=== PATIENT | male | born 1965 | race Two or more races ===

== ENCOUNTER → 2021-07-03 14:57 | Outpatient (CLI) | payer BC, SELFPAY ==
[2021-07-03 15:22] LABS: Hematocrit 36.2 % (40-54); Hemoglobin 11.6 g/dL (13.0-16.5); Mean Corpuscular Hgb 29.8 pg (27.0-32.0); Mean Corpuscular Volume 93.1 fL (80-94); Platelet Count 360 K/mm3 (150-450); RBC Distribution Width CV 13.5 % (11.6-14.6); RBC Distribution Width SD 46.1 fl (35.1-43.9); Red Blood Count 3.89 M/mm3 (4.6-6.2); White Blood Count 10.5 K/mm3 (4.4-11.0)
[2021-07-03 15:50] LABS: ALB/GLOB Ratio 0.9 RATIO (0.9-2.4); AST(SGOT) 17 U/L (15-37); Alanine Aminotransfer ALT/SGPT 25 U/L (16-61); Alkaline Phosphatase 123 U/L (45-117); Anion Gap 8 (5-15); BUN 23 mg/dL (7-18); Calcium,Total 9.2 mg/dL (8.5-10.1); Chloride 104 mmol/L (98-107); Cholesterol 150 mg/dL (200); Creatinine, Serum 1.21 mg/dL (0.70-1.30); EST Glomerular Filtration Rate 66 mL/min (>60); Est Glom Filt Rate - Afr Amer 80 mL/min (>60); Globulin 4.3 g/dL (2.2-4.2); Glucose 87 mg/dL (74-106); High Density Lipoprotein 35 mg/dL; Iron 87 ug/dL (65-175); Iron Binding Capacity,Total 343 ug/dL (250-450); PSA,Total - Annual Screen 0.28 ng/mL (0.00-4.00); Potassium 4.2 mmol/L (3.5-5.1); Protein, Total 8.3 g/dL (6.4-8.2); Sodium Level 136 mmol/L (136-145); Triglycerides 136 mg/dL; Very Low Density Lipoprotein 27 mg/dL (5-40)
[2021-07-03 15:52] LABS: Hemoglobin A1c 6.9 % (3.8-5.6)
== END ==
PROVIDERS: PCP Nurse Practitioner Family; Referring Provider Nurse Practitioner Family; Visit Provider Nurse Practitioner Family
DX: R73.01 Impaired fasting glucose (principal); I10 Essential (primary) hypertension; I25.810 Atherosclerosis of coronary artery bypass graft(s) without angina pectoris; E78.00 Pure hypercholesterolemia, unspecified; D50.9 Iron deficiency anemia, unspecified; Z12.5 Encounter for screening for malignant neoplasm of prostate
CPT/HCPCS: 36415; 80053; 80061; 83036; 83540; 83550; 84153; 85027; G0103

== ENCOUNTER 2021-08-02 14:03 | Emergency (ER) | payer BC, SELFPAY ==
[2021-08-02 14:04] VITALS: BP 113/82; PULSE 69; PULSE 71; RESP 16; RESP 17; TEMP 36.6; O2SAT 94; O2SAT 95; BMI 34.0
--- NOTE | 2021-08-02 14:10 | RAD_ITS ---
STUDY: X-RAY CHEST REASON FOR EXAM: Male, 55 years old. SOB . Covid positive. TECHNIQUE: Single AP portable view of the chest. COMPARISON: None. FINDINGS: Findings suggest a mild degree of vascular congestion. There is no demonstrated pleural abnormality. Sternal cerclage wires and vascular clips are present from a prior sternotomy and coronary artery bypass graft procedure (CABG). A left-sided dual-chamber pacemaker is seen. Normal mediastinum and vito. Normal visualized pulmonary arteries. Normal visualized aortic arch and descending thoracic aorta. Normal visualized thoracic spine. There is degenerative osteoarthritis of the bilateral shoulders. There is no demonstrated abnormality of the visualized soft tissue structures of the upper abdomen. RAD/Chest 1 View IMPRESSION: Findings suggestive of a mild degree of CHF. Electronically Signed: Sohail Sebastian MD at 14:30 EDT , Service support ,
--- NOTE | 2021-08-02 14:34 | EX.ED.DYSGE1 ---
HPI History of Present Illness Chief Complaint: Fever Informant: patient Onset/Context/Timing Onset: Days Context: Gradual Onset Timing: Continuous Current Severity: Mild Maximum Severity: Mild Narrative Narrative: 55-year-old male history of CAD, NM with prior CABG. States he started feeling poorly on Saturday. Had a Covid test done Saturday and got his positive results today. States had fever and chills. Cough. Myalgias. Nausea, vomiting and diarrhea. He is currently nauseated. Said he had decreased oral intake. Prior similar symptoms: No Recent Illness/Hospitalization: No PFSH PFSH Medical History Atherosclerotic heart disease of [place] coronary artery without angina pectoris Essential hypertension JOSE (generalized anxiety disorder) History of non-ST elevation myocardial infarction (NSTEMI) (03/2018) Hyperlipidemia Iron deficiency anemia Neuropathy Obesity Postoperative atrial fibrillation Tachy-jessie syndrome Type 2 diabetes mellitus Home Medications atorvastatin 80 mg tablet 80 mg PO QHS 06/23/21 [History Last Taken Unknown] escitalopram oxalate 20 mg tablet 20 mg PO DAILY 06/23/21 [History Last Taken Unknown] ferrous sulfate 325 mg (65 mg iron) tablet 325 mg PO BID 06/23/21 [History Last Taken Unknown] gabapentin 800 mg tablet 800 mg PO TID 06/23/21 [History Last Taken Unknown] metoprolol succinate 25 mg tablet,extended release 24 hr 25 mg PO DAILY 06/23/21 [History Last Taken Unknown] aspirin 81 mg tablet,delayed release 81 mg PO QDAY #90 tab 07/12/21 [Rx Last Taken Unknown] dexamethasone [Decadron] 6 mg PO DAILY #7 tab 08/02/21 [Rx Last Taken Unknown] ondansetron 4 mg PO Q6H PRN #7 tab 08/02/21 [Rx Last Taken Unknown] Allergy/AdvReac Type Severity Reaction Status Date / Time codeine AdvReac unknown Verified 08/02/21 14:21 Family History Mother Heart disease Diabetes Father Heart disease Surgical History H/O coronary artery bypass surgery (04/08/18) History of left heart catheterization (04/04/18) History of permanent cardiac pacemaker placement (04/14/18) Social History Smoking Status: Never smoker alcohol intake: never ROS ROS ED ROS Narrative Covid positive. Nausea, vomiting diarrhea. Fever and chills. Myalgias. Cough. Review of Systems ROS Unobtainable: Denies due to encephalopathy Constitutional Constitutional ED: Reports chills, fever(s) and subjective Eyes Eyes: Denies change in vision ENT ENT ED: Denies ear pain or sore throat Cardiovascular Cardiovascular: Denies chest pain Respiratory/Chest Respiratory/Chest: Reports cough; Denies dyspnea Gastrointestinal Gastrointestinal: Reports diarrhea, nausea and vomiting; Denies abdominal pain Genitourinary Genitourinary ED: Denies dysuria Musculoskeletal Musculoskeletal: Reports myalgias Integumentary Denies rash Neurologic Neurologic: Denies headache(s) Psychiatric Psychiatric: Denies depression Endocrine Endocrinology: Denies polyuria Allergic/Immunologic Allergic/Immunologic ED: Denies urticaria EXAM Physical Exam Narrative Exam Narrative: Middle-age male no acute distress vital signs stable afebrile. Pulse ox 95% on room air no hypoxia. HEENT exam unremarkable. Neck nontender no lymphadenopathy. Lungs clear to auscultation bilaterally. Heart regular rhythm no murmur. Abdomen soft nondistended normal bowel sounds no peritoneal signs. Chest wall nontender. Well-healed sternotomy. Moving all 4 extremities. Calves nontender without edema or cords. Skin pale. Neurologically is awake alert with no focal motor deficits. Exam benign. Const Vital Signs: 08/02/21 14:04 08/02/21 14:25 Temperature 97.8 F Temperature Source Temporal Pulse Rate 71 Respiratory Rate 16 Respiratory Effort Normal Respiratory Pattern Normal Blood Pressure 113/82 H Blood Pressure Mean 92 Pulse Ox 95 Oxygen Delivery Method Room Air Positive well nourished, well developed and obese; Negative for cachectic, contractures or unkempt General Appearance ED: well developed, NAD and pallor; Negative for unkempt, cachectic, contractures, cyanotic or diaphoretic Nutritional Appearance: obese; Negative for cachectic HEENT Reports moist mucous membranes Negative for trauma or tenderness Eyes PERRL and EOMs intact bilaterally Neck no lymphadenopathy, supple and no JVD General: Negative for tenderness Chest Wall inspection of chest normal and palpation of chest normal Resp normal respiratory effort and clear to auscultation bilaterally Effort and Inspection: Negative for pain with movement Auscultation: Negative for rales, rhonchi or wheezes Cardio regular rate, regular rhythm, S1 normal heart sound, S2 normal heart sound and no murmurs GI normal to inspection, nondistended, normoactive bowel sounds, non-tender, non-distended and no masses Inspection: Negative for abdominal distention Auscultation: normoactive bowel sounds Palpation: soft; Negative for tender, guarding or rebound tenderness present Back/Spine no CVA tenderness General Back: Negative for CVA tenderness Extremity normal to inspection General Extremety ED: Negative for edema or tenderness General Extremity: Negative for edema Neuro oriented x3 and CN's II-XII intact bilaterally Sensorium / Orientation: alert; Negative for orientation impaired, lethargic or stuporous Motor Exam: strength 5/5 throughout Psych mental status grossly normal Appearance: Negative for unkempt Mood & Affect: Negative for depressed or tearful Skin no rashes or lesions noted and no wounds General Skin Exam: pallor; Negative for elasticity normal or jaundice MDM MDM MDM Narrative Medical decision making narrative: 55-year-old male known history of coronary disease and prior bypass. Said Covid symptoms since Saturday had a positive Covid test on Saturday. States has had nausea vomiting diarrhea. To be treated with IV fluids. With screening labs. Lab Data Attestation: I reviewed the patient's lab results. Radiography Chest X-Ray - ED: 1 View, Read by ED Physician, Read by Radiologist, Normal, Heart, Lungs, Mediastinum, Bony Structures, No Acute Disease and Chronic Changes Diagnostic Testing: Clinical Impression(s) from Imaging Studies Chest X-Ray 08/02/21 14:10 IMPRESSION: Findings suggestive of a mild degree of CHF. Electronically Signed: Sohail Sebastian MD at 14:30 EDT , Service support , Portable single view chest x-ray interpreted by myself shows no acute abnormality. Radiologist's reading is CHF I clinically do not think the patient has pulmonary edema. Discharge Plan Triage Chief Complaint: Fever ED Provider: Dashawn Mcfadden Dx/Rx/DC Orders Clinical Impression: COVID-19, Nausea & vomiting Instructions: ED Vomiting and Diarrhea ..., Human Coronaviruses Prescriptions: New dexamethasone [Decadron] 6 mg tablet 6 mg PO DAILY Qty: 7 RF: 0 ondansetron 4 mg tablet,disintegrating 4 mg PO Q6H PRN (Reason: nausea and vomiting) Qty: 7 RF: 0 No Action atorvastatin 80 mg tablet 80 mg PO QHS RF: 0 escitalopram oxalate [Lexapro] 20 mg tablet 20 mg PO DAILY RF: 0 ferrous sulfate 325 mg (65 mg iron) tablet 325 mg PO BID RF: 0 gabapentin 800 mg tablet 800 mg PO TID RF: 0 metoprolol succinate 25 mg tablet extended release 24 hr 25 mg PO DAILY RF: 0 aspirin [Adult Low Dose Aspirin] 81 mg tablet,delayed release (DR/EC) 81 mg PO QDAY Qty: 90 RF: 3 Other Ambulatory Orders: COVID Outpatient Monoclonal Antibody Referral (Routine) Timeframe: 1 Day Facility: [facility] - Location: [facility] Ordered By: Dr. Dashawn Mcfadden Primary Care Provider: Nando Leon NP Referrals: Nando Leon CRYSTAL CUTTER, CRYSTAL CUTTER-C [Primary Care Provider] - 3-5 Days if not improving Activity Restrictions/Additional Instructions: Plenty of fluids and rest. Increase diet slowly as tolerated. Zofran as needed for nausea. Daily Decadron to help prevent inflammation in your lungs from the Covid. Follow-up with your doctor if not improving or return emergency department. They should contact you tomorrow about monoclonal antibody therapy. If they do not call you by noon call the emergency department and asked to be connected to the monoclonal antibody therapy center here in the hospital. Disposition Disposition: Home, Self Care
[2021-08-02] MEDS: Ondansetron 4 MG/2 ML Vial IV (14:55)
[2021-08-02] MEDS: 0.9% Normal Saline 1,000 ML 1000 ML IV (14:55)
[2021-08-02 14:59] VITALS: BP 126/67; PULSE 64; RESP 18; TEMP 37.1
[2021-08-02 15:14] LABS: Absolute Lymphocyte Count 0.47 X10^3/uL (0.83-4.51); Absolute Neutrophil Count 4.1 X10^3/uL (2.0-7.7); Basophil# 0.01 X10^3/uL; Basophil% 0.2 % (0-1); Hematocrit 34.8 % (40-54); Hemoglobin 11.8 g/dL (13.0-16.5); Lymphocyte # 0.47 X10^3/ul (0.83-4.51); Lymphocyte % 9.8 % (19-41); Mean Corp Hgb Conc 33.9 g/dL (32-36); Mean Corpuscular Hgb 29.8 pg (27.0-32.0); Mean Corpuscular Volume 87.9 fL (80-94); Mean Platelet Vol. 10.5 fl (6.2-12.0); Monocyte# 0.22 X10^3/uL; Monocyte% 4.6 % (0-10); NRBC Flagged by Analyzer 0 % (0-5); Neutrophil # 4.07 X10^3/uL (2.7-7.7); Neutrophil % 84.8 % (47-70); POSITIVE DIFFERENTIAL YES; Platelet Count 230 K/mm3 (150-450); RBC Distribution Width CV 13.5 % (11.6-14.6); RBC Distribution Width SD 43.8 fl (35.1-43.9); Red Blood Count 3.96 M/mm3 (4.6-6.2); White Blood Count 4.8 K/mm3 (4.4-11.0)
[2021-08-02 15:31] LABS: Differential Indicated SCAN CRITERIA MET
[2021-08-02 15:33] LABS: Anion Gap 11 (5-15); BUN 28 mg/dL (7-18); BUN/Creat Ratio 18.1 RATIO (10-20); Calcium,Total 8.7 mg/dL (8.5-10.1); Chloride 101 mmol/L (98-107); Creatinine, Serum 1.55 mg/dL (0.70-1.30); EST Glomerular Filtration Rate 50 mL/min (>60); Est Glom Filt Rate - Afr Amer 60 mL/min (>60); Estimated Creatinine Clearance 53.85 ml/min; Glucose 118 mg/dL (74-106); Potassium 3.3 mmol/L (3.5-5.1); Sodium Level 137 mmol/L (136-145)
[2021-08-02 15:44] LABS: Differential Comment SCANNED
--- NOTE | 2021-08-02 15:59 | EDS_ITS ---
HPI History of Present Illness Chief Complaint: Fever PFSH PFSH Medical History Atherosclerotic heart disease of [place] coronary artery without angina pectoris Essential hypertension JOSE (generalized anxiety disorder) History of non-ST elevation myocardial infarction (NSTEMI) (03/2018) Hyperlipidemia Iron deficiency anemia Neuropathy Obesity Postoperative atrial fibrillation Tachy-jessie syndrome Type 2 diabetes mellitus Home Medications atorvastatin 80 mg tablet 80 mg PO QHS 06/23/21 [History Last Taken Unknown] escitalopram oxalate 20 mg tablet 20 mg PO DAILY 06/23/21 [History Last Taken Unknown] ferrous sulfate 325 mg (65 mg iron) tablet 325 mg PO BID 06/23/21 [History Last Taken Unknown] gabapentin 800 mg tablet 800 mg PO TID 06/23/21 [History Last Taken Unknown] metoprolol succinate 25 mg tablet,extended release 24 hr 25 mg PO DAILY 06/23/21 [History Last Taken Unknown] aspirin 81 mg tablet,delayed release 81 mg PO QDAY #90 tab 07/12/21 [Rx Last Taken Unknown] dexamethasone [Decadron] 6 mg PO DAILY #7 tab 08/02/21 [Rx Last Taken Unknown] ondansetron 4 mg PO Q6H PRN #7 tab 08/02/21 [Rx Last Taken Unknown] Allergy/AdvReac Type Severity Reaction Status Date / Time codeine AdvReac unknown Verified 08/02/21 14:21 Family History Mother Heart disease Diabetes Father Heart disease Surgical History H/O coronary artery bypass surgery (04/08/18) History of left heart catheterization (04/04/18) History of permanent cardiac pacemaker placement (04/14/18) Social History Smoking Status: Never smoker alcohol intake: never EXAM Physical Exam Const Vital Signs: 08/02/21 14:04 08/02/21 14:25 08/02/21 14:59 Temperature 97.8 F 98.8 F Temperature Source Temporal Temporal Pulse Rate 71 64 Respiratory Rate 16 18 Respiratory Effort Normal Respiratory Pattern Normal Blood Pressure 113/82 H 126/67 H Blood Pressure Mean 92 86 Pulse Ox 95 Oxygen Delivery Method Room Air Room Air MDM MDM Lab Data Attestation: I reviewed the patient's lab results. Lab results narrative: CBC shows a white count of 4.8. Hemoglobin 11.8. Electrolytes potassium 3.3. Gap 11. BUN and creatinine 28 and 1.55. Glucose 118. Labs: Laboratory Results - last 24 hr 08/02/21 08/02/21 15:01 15:01 WBC 4.8 RBC 3.96 L Hgb 11.8 L Hct 34.8 L MCV 87.9 MCH 29.8 MCHC 33.9 RDW Std Deviation 43.8 RDW Coeff of Maxwell 13.5 Plt Count 230 MPV 10.5 Immature Gran % (Auto) 0.600 Neut % (Auto) 84.8 H Lymph % (Auto) 9.8 L [place] % (Auto) 4.6 Eos % (Auto) 0.0 Baso % (Auto) 0.2 Absolute Neuts (auto) 4.1 Absolute Lymphs (auto) 0.47 L Nucleated RBC % 0 Differential Comment SCANNED Sodium 137 Potassium 3.3 L Chloride 101 Carbon Dioxide 25.0 Anion Gap 11 BUN 28 H Creatinine 1.55 H Estim Creat Clear Calc 53.85 Est GFR (MDRD) Af Amer 60 Est GFR (MDRD) Non-Af 50 L BUN/Creatinine Ratio 18.1 Glucose 118 H Calcium 8.7 Radiography Chest X-Ray - ED: 1 View, Read by ED Physician, Read by Radiologist, Heart, Lungs, Mediastinum, Bony Structures, No Acute Disease and Chronic Changes Diagnostic Testing: Clinical Impression(s) from Imaging Studies Chest X-Ray 08/02/21 14:10 IMPRESSION: Findings suggestive of a mild degree of CHF. Electronically Signed: Sohail Sebastian MD at 14:30 EDT , Service support , Portable chest x-ray 1 view interpreted by myself and the radiologist. Shows chronic changes no acute process. No infiltrate. Prior sternotomy. Left-sided pacemaker. Discharge Plan Triage Chief Complaint: Fever ED Provider: Dashawn Mcfadden Dx/Rx/DC Orders Clinical Impression: COVID-19, Nausea & vomiting Instructions: ED Vomiting and Diarrhea ..., Human Coronaviruses Prescriptions: New dexamethasone [Decadron] 6 mg tablet 6 mg PO DAILY Qty: 7 RF: 0 ondansetron 4 mg tablet,disintegrating 4 mg PO Q6H PRN (Reason: nausea and vomiting) Qty: 7 RF: 0 No Action atorvastatin 80 mg tablet 80 mg PO QHS RF: 0 escitalopram oxalate [Lexapro] 20 mg tablet 20 mg PO DAILY RF: 0 ferrous sulfate 325 mg (65 mg iron) tablet 325 mg PO BID RF: 0 gabapentin 800 mg tablet 800 mg PO TID RF: 0 metoprolol succinate 25 mg tablet extended release 24 hr 25 mg PO DAILY RF: 0 aspirin [Adult Low Dose Aspirin] 81 mg tablet,delayed release (DR/EC) 81 mg PO QDAY Qty: 90 RF: 3 Other Ambulatory Orders: COVID Outpatient Monoclonal Antibody Referral (Routine) Timeframe: 1 Day Facility: [facility] - Location: [facility] Ordered By: Dr. Dashawn Mcfadden Primary Care Provider: Nando Leon NP Referrals: Nando Leon SPECIAL EDUCATION PRESCHOOL TEACHER, SPECIAL EDUCATION PRESCHOOL TEACHER-C [Primary Care Provider] - 3-5 Days if not improving Activity Restrictions/Additional Instructions: Plenty of fluids and rest. Increase diet slowly as tolerated. Zofran as needed for nausea. Daily Decadron to help prevent inflammation in your lungs from the Covid. Follow-up with your doctor if not improving or return emergency department. They should contact you tomorrow about monoclonal antibody therapy. If they do not call you by noon call the emergency department and asked to be connected to the monoclonal antibody therapy center here in the hospital. Disposition Disposition: Home, Self Care
--- NOTE | 2021-08-02 16:08 | EX.ED.DYSGE1 ---
HPI History of Present Illness Chief Complaint: Fever PFSH PFSH Medical History Atherosclerotic heart disease of [place] coronary artery without angina pectoris Essential hypertension JOSE (generalized anxiety disorder) History of non-ST elevation myocardial infarction (NSTEMI) (03/2018) Hyperlipidemia Iron deficiency anemia Neuropathy Obesity Postoperative atrial fibrillation Tachy-jessie syndrome Type 2 diabetes mellitus Home Medications atorvastatin 80 mg tablet 80 mg PO QHS 06/23/21 [History Last Taken Unknown] escitalopram oxalate 20 mg tablet 20 mg PO DAILY 06/23/21 [History Last Taken Unknown] ferrous sulfate 325 mg (65 mg iron) tablet 325 mg PO BID 06/23/21 [History Last Taken Unknown] gabapentin 800 mg tablet 800 mg PO TID 06/23/21 [History Last Taken Unknown] metoprolol succinate 25 mg tablet,extended release 24 hr 25 mg PO DAILY 06/23/21 [History Last Taken Unknown] aspirin 81 mg tablet,delayed release 81 mg PO QDAY #90 tab 07/12/21 [Rx Last Taken Unknown] dexamethasone [Decadron] 6 mg PO DAILY #7 tab 08/02/21 [Rx Last Taken Unknown] ondansetron 4 mg PO Q6H PRN #7 tab 08/02/21 [Rx Last Taken Unknown] Allergy/AdvReac Type Severity Reaction Status Date / Time codeine AdvReac unknown Verified 08/02/21 14:21 Family History Mother Heart disease Diabetes Father Heart disease Surgical History H/O coronary artery bypass surgery (04/08/18) History of left heart catheterization (04/04/18) History of permanent cardiac pacemaker placement (04/14/18) Social History Smoking Status: Never smoker alcohol intake: never EXAM Physical Exam Const Vital Signs: 08/02/21 14:04 08/02/21 14:25 08/02/21 14:59 Temperature 97.8 F 98.8 F Temperature Source Temporal Temporal Pulse Rate 71 64 Respiratory Rate 16 18 Respiratory Effort Normal Respiratory Pattern Normal Blood Pressure 113/82 H 126/67 H Blood Pressure Mean 92 86 Pulse Ox 95 Oxygen Delivery Method Room Air Room Air MDM MDM Lab Data Labs: Laboratory Results - last 24 hr 08/02/21 08/02/21 15:01 15:01 WBC 4.8 RBC 3.96 L Hgb 11.8 L Hct 34.8 L MCV 87.9 MCH 29.8 MCHC 33.9 RDW Std Deviation 43.8 RDW Coeff of [place] 13.5 Plt Count 230 MPV 10.5 Immature Gran % (Auto) 0.600 Neut % (Auto) 84.8 H Lymph % (Auto) 9.8 L [place] % (Auto) 4.6 Eos % (Auto) 0.0 Baso % (Auto) 0.2 Absolute Neuts (auto) 4.1 Absolute Lymphs (auto) 0.47 L Nucleated RBC % 0 Differential Comment SCANNED Sodium 137 Potassium 3.3 L Chloride 101 Carbon Dioxide 25.0 Anion Gap 11 BUN 28 H Creatinine 1.55 H Estim Creat Clear Calc 53.85 Est GFR (MDRD) Af Amer 60 Est GFR (MDRD) Non-Af 50 L BUN/Creatinine Ratio 18.1 Glucose 118 H Calcium 8.7 Radiography Diagnostic Testing: Clinical Impression(s) from Imaging Studies Chest X-Ray 08/02/21 14:10 IMPRESSION: Findings suggestive of a mild degree of CHF. Electronically Signed: Sohail Sebastian MD at 14:30 EDT , Service support , Discharge Plan Triage Chief Complaint: Fever ED Provider: Dashawn Mcfadden Dx/Rx/DC Orders Clinical Impression: COVID-19, Nausea & vomiting Instructions: ED Vomiting and Diarrhea ..., Human Coronaviruses Prescriptions: New dexamethasone [Decadron] 6 mg tablet 6 mg PO DAILY Qty: 7 RF: 0 ondansetron 4 mg tablet,disintegrating 4 mg PO Q6H PRN (Reason: nausea and vomiting) Qty: 7 RF: 0 No Action atorvastatin 80 mg tablet 80 mg PO QHS RF: 0 escitalopram oxalate [Lexapro] 20 mg tablet 20 mg PO DAILY RF: 0 ferrous sulfate 325 mg (65 mg iron) tablet 325 mg PO BID RF: 0 gabapentin 800 mg tablet 800 mg PO TID RF: 0 metoprolol succinate 25 mg tablet extended release 24 hr 25 mg PO DAILY RF: 0 aspirin [Adult Low Dose Aspirin] 81 mg tablet,delayed release (DR/EC) 81 mg PO QDAY Qty: 90 RF: 3 Other Ambulatory Orders: COVID Outpatient Monoclonal Antibody Referral (Routine) Timeframe: 1 Day Facility: [facility] - Location: [facility] Ordered By: Dr. Dashawn Mcfadden Primary Care Provider: Nando Leon NP Referrals: Nando Leon SENIOR ORACLE APPLICATIONS DEVELOPER, SENIOR ORACLE APPLICATIONS DEVELOPER-C [Primary Care Provider] - 3-5 Days if not improving Activity Restrictions/Additional Instructions: Plenty of fluids and rest. Increase diet slowly as tolerated. Zofran as needed for nausea. Daily Decadron to help prevent inflammation in your lungs from the Covid. Follow-up with your doctor if not improving or return emergency department. They should contact you tomorrow about monoclonal antibody therapy. If they do not call you by noon call the emergency department and asked to be connected to the monoclonal antibody therapy center here in the hospital. Disposition Disposition: Home, Self Care
[2021-08-02] MEDS: dexAMETHasone 4 MG Tablet 6 MG PO (16:20)
[2021-08-02 16:22] VITALS: BP 134/78; PULSE 68; RESP 15; TEMP 36.6; O2SAT 97
== END 2021-08-02 17:28 | disposition home or self-care (01) ==
LOC: ED 15:09
PROVIDERS: Emergency Provider Emergency Medicine; PCP Nurse Practitioner Family
DX: U07.1 COVID-19 (principal); R11.2 Nausea with vomiting, unspecified; I25.10 Atherosclerotic heart disease of native coronary artery without angina pectoris; I10 Essential (primary) hypertension; D50.9 Iron deficiency anemia, unspecified; E66.9 Obesity, unspecified; I25.2 Old myocardial infarction; Z95.1 Presence of aortocoronary bypass graft; E11.40 Type 2 diabetes mellitus with diabetic neuropathy, unspecified; E78.5 Hyperlipidemia, unspecified; F41.1 Generalized anxiety disorder; I48.91 Unspecified atrial fibrillation; Z79.52 Long term (current) use of systemic steroids; Z79.82 Long term (current) use of aspirin
CPT/HCPCS: 71045; 80048; 85025; 96361; 96374; 99285; J7030; A4216; J2405

== ENCOUNTER 2021-08-04 13:45 | Outpatient (CLI) | payer BC, SELFPAY ==
[2021-08-04] MEDS: 0.9% Saline Lock 10 ML Syringe IV (13:58)
[2021-08-04 14:00] VITALS: BP 106/52; PULSE 59; RESP 16; TEMP 37.3; O2SAT 94; BMI 34.9
[2021-08-04 14:53] VITALS: BP 115/54; PULSE 54; RESP 16; TEMP 37.3; O2SAT 94
[2021-08-04 16:04] VITALS: BP 135/57; PULSE 76; RESP 16; TEMP 37.2; O2SAT 95
== END 2021-08-04 15:40 | disposition home or self-care (01) ==
LOC: MS3OUT 13:46 → MS3 13:47
PROVIDERS: PCP Nurse Practitioner Family; Referring Provider Nurse Practitioner Adult Health; Visit Provider Nurse Practitioner Adult Health
DX: Z23 Encounter for immunization (principal); U07.1 COVID-19
CPT/HCPCS: J7050; M0243; A4216; Q0244

== ENCOUNTER → 2022-09-26 | Outpatient (CLI) | payer BC, SELFPAY ==
[2022-09-26 17:14] LABS: Hematocrit 37.5 % (40-54); Hemoglobin 11.8 g/dL (13.0-16.5); Mean Corp Hgb Conc 31.5 g/dL (32-36); Mean Corpuscular Volume 92.1 fL (80-94); Mean Platelet Vol. 10.4 fl (6.2-12.0); Platelet Count 407 K/mm3 (150-450); RBC Distribution Width CV 13.7 % (11.6-14.6); RBC Distribution Width SD 46.7 fl (35.1-43.9); Red Blood Count 4.07 M/mm3 (4.6-6.2)
[2022-09-26 17:54] LABS: ALB/GLOB Ratio 0.8 RATIO (0.9-2.4); AST(SGOT) 10 U/L (15-37); Alanine Aminotransfer ALT/SGPT 15 U/L (16-61); Albumin, Serum 3.4 g/dL (3.2-5.0); Alkaline Phosphatase 96 U/L (45-117); Anion Gap 6 (5-15); BUN 26 mg/dL (7-18); BUN/Creat Ratio 24.5 RATIO (10-20); Calcium,Total 9.4 mg/dL (8.5-10.1); Chloride 107 mmol/L (98-107); Cholesterol 212 mg/dL (200); Creatinine, Serum 1.06 mg/dL (0.70-1.30); EST Glomerular Filtration Rate 77 mL/min (>60); Est Glom Filt Rate - Afr Amer 93 mL/min (>60); Globulin 4.2 g/dL (2.2-4.2); Glucose 97 mg/dL (74-106); High Density Lipoprotein 33 mg/dL; PSA,Total - Annual Screen 0.65 ng/mL (0.00-4.00); Protein, Total 7.6 g/dL (6.4-8.2); Sodium Level 140 mmol/L (136-145); Triglycerides 98 mg/dL; Very Low Density Lipoprotein 20 mg/dL (5-40)
== END | disposition home or self-care (01) ==
PROVIDERS: PCP Nurse Practitioner Family; Visit Provider Nurse Practitioner Family
DX: G57.90 Unspecified mononeuropathy of unspecified lower limb (principal); I10 Essential (primary) hypertension; I25.810 Atherosclerosis of coronary artery bypass graft(s) without angina pectoris; D50.9 Iron deficiency anemia, unspecified; E78.00 Pure hypercholesterolemia, unspecified; Z12.5 Encounter for screening for malignant neoplasm of prostate
CPT/HCPCS: 36415; 80053; 80061; 84153; 85027; G0103

== ENCOUNTER 2023-01-22 19:04 | Emergency (ER) | payer BC, SELFPAY ==
[2023-01-22 19:05] VITALS: BP 132/66; PULSE 60; RESP 20; TEMP 36.3; O2SAT 97; BMI 35.9
--- NOTE | 2023-01-22 19:45 | EDS_ITS ---
HPI History of Present Illness Chief Complaint: Abn Labs Detail of Chief Complaint: D-dimer above normal Informant: patient Onset/Context/Timing Onset: Days Context: Sudden Onset Timing: Intermittent Quality: Upper respiratory symptoms with myalgias and arthralgias Location: Left-sided chest pain that is intermittent Current Severity: Gone Maximum Severity: Mild Worsened by: Coughing, which has resolved Relieved by: Not applicable Associated Symptoms Associated Symptoms: Viral-like upper respiratory symptoms Narrative Narrative: Patient is a 57-year-old male with history of coronary disease, pacemaker, iron deficiency anemia, hypercholesterolemia, essential hypertension and obesity who was sent in because of elevated D-dimer. Once D-dimer is corrected for age the D-dimer is normal. Patient's history is consistent with upper respiratory viral infection. Chest x-ray was performed as an outpatient at [facility]. The chest x-ray reveals chronic changes with degenerative disc disease on the dorsal vertebrae. Pacemaker was noted. The interpretation by radiologist reviewed and there is no acute findings. Blood work revealed an elevated TSH. D-dimer was elevated from normal however once corrected for age is normal. H&H is unremarkable. Renal functions unchanged from prior. Patient states he has not felt well for several days. He complains of myalgias arthralgias and upper respiratory symptoms. Prior similar symptoms: Yes Recent Illness/Hospitalization: No PFSH PFSH Medical History Atherosclerotic heart disease of [place] coronary artery without angina pectoris COVID-19 Essential hypertension JOSE (generalized anxiety disorder) History of non-ST elevation myocardial infarction (NSTEMI) (03/2018) Hyperlipidemia Iron deficiency anemia Neuropathy Obesity Postoperative atrial fibrillation Tachy-jessie syndrome Type 2 diabetes mellitus Home Medications atorvastatin 80 mg tablet 80 mg PO QHS 06/23/21 [History Last Taken Unknown] escitalopram oxalate 20 mg tablet (Lexapro) 20 mg PO DAILY 06/23/21 [History Last Taken Unknown] ferrous sulfate 325 mg (65 mg iron) tablet 325 mg PO BID 06/23/21 [History Last Taken Unknown] gabapentin 800 mg tablet 800 mg PO TID 06/23/21 [History Last Taken Unknown] metoprolol succinate 25 mg tablet,extended release 24 hr 25 mg PO DAILY 06/23/21 [History Last Taken Unknown] aspirin 81 mg tablet,delayed release (Adult Low Dose Aspirin) 81 mg PO QDAY #90 tabs 07/12/21 [Rx Last Taken Unknown] dexamethasone 6 mg tablet (Decadron) 6 mg PO DAILY #7 tabs 08/02/21 [Rx Last Taken Unknown] ondansetron 4 mg disintegrating tablet 4 mg PO Q6H PRN nausea and vomiting #7 tabs 08/02/21 [Rx Last Taken Unknown] Allergy/AdvReac Type Severity Reaction Status Date / Time codeine AdvReac unknown Verified 01/22/23 19:08 Family History Mother Heart disease Diabetes Father Heart disease Surgical History H/O coronary artery bypass surgery (04/08/18) History of left heart catheterization (04/04/18) History of permanent cardiac pacemaker placement (04/14/18) Social History (Updated 01/22/23 @ 19:[address] Juventino Montoya MD) household members: none Smoking Status: Never smoker alcohol intake: never ROS ROS ED Constitutional Constitutional ED: Denies chills, fever(s), subjective, sweats or weight loss Eyes Eyes: Denies blurry vision, change in vision or diplopia ENT ENT ED: Reports rhinorrhea; Denies ear pain or sore throat Cardiovascular Cardiovascular: Reports chest pain and other Details: Has pain in his left side/left costal margin. Pain is intermittent and described as sharp. There is no alleviating, precipitating or exacerbating factors other than cough. ; Denies orthopnea or paroxysmal nocturnal dyspnea Respiratory/Chest Respiratory/Chest: Reports cough; Denies dyspnea, dyspnea on exertion, orthopnea, paroxysmal nocturnal dyspnea or sputum Gastrointestinal Gastrointestinal: Denies abdominal pain, diarrhea, nausea or vomiting Musculoskeletal Musculoskeletal: Reports arthralgias and myalgias; Denies back pain Integumentary Denies rash Neurologic Neurologic: Reports weakness; Denies headache(s) or paresthesias Endocrine Endocrinology: Reports cold intolerance; Denies heat intolerance Hematologic/Lymphatic Hematologic/Lymphatic: Reports systems reviewed and no addt'l complaints, except as documented EXAM Physical Exam Const Vital Signs: 01/22/23 19:05 01/22/23 19:08 Temperature 97.4 F L Temperature Source Oral Pulse Rate 60 Respiratory Rate 20 H Respiratory Effort Normal Non-Labored Respiratory Pattern Normal Blood Pressure 132/66 H Blood Pressure Mean 88 Pulse Ox 97 Oxygen Delivery Method Room Air Positive well nourished, well developed and obese General Appearance ED: well developed and NAD; Negative for cyanotic, diaphoretic or pallor Nutritional Appearance: obese HEENT Reports moist mucous membranes HEENT Narrative: Head is atraumatic normocephalic. Ears normal. Nares patent. Mucosa is moist. Eyes PERRL and EOMs intact bilaterally General Eye ED: Negative for pale conjunctiva or scleral icterus Neck no lymphadenopathy, supple and no JVD Resp normal respiratory effort Resp Narrative: Pacemaker palpable left infraclavicular region. Cardio regular rate, regular rhythm, S1 normal heart sound, S2 normal heart sound and no murmurs GI normal to inspection, nondistended, normoactive bowel sounds, non-tender, non- distended and no masses; Negative for hepatosplenomegaly Back/Spine no CVA tenderness Neuro oriented x3, CN's II-XII intact bilaterally and no sensory deficits noted Sensorium / Orientation: alert Psych mental status grossly normal Skin no rashes or lesions noted, no wounds and skin turgor normal General Skin Exam: Negative for jaundice or pallor MDM MDM MDM Narrative Medical decision making narrative: Patient's findings are consistent with viral infection. X-ray there is performed as an outpatient was available for review and per my review reveals no acute process. Patient CBC is unremarkable other than mild anemia, which is chronic. Electrolyte panel is unremarkable. TSH is slightly elevated. Inflammatory markers are elevated and are elevated due to infectious cause. D- dimer can be elevated because of infectious cause. History & Record Review Additional record(s) reviewed:: Prior inpatient record (Placement of pacemaker for tachybradycardia syndrome. Dr. Morillo is patient's labeling associate), Prior outpatient record, Prior ED visit and Prior labs (Discussed in the MDM/plan) Radiography Chest X-Ray - ED: Read by ED Physician (The outpatient chest x-ray was reviewed by me and reveals no acute process. Total of 2 views were obtained.) Treatment and Re-Evaluation :: Patient was informed his D-dimer is normal. He states he was sent in because his D-dimer was elevated. Discharge Plan Triage Chief Complaint: Abn Labs ED Provider: JanJuventino Dx/Rx/DC Orders Clinical Impression: Acute upper respiratory infection, Hyperlipidemia, Essential hypertension, History of permanent cardiac pacemaker placement, H/O coronary artery bypass surgery, Elevated TSH Instructions: ED URI, Viral, No Abx (Adult) Prescriptions: No Action atorvastatin 80 mg tablet 80 mg PO QHS escitalopram oxalate [Lexapro] 20 mg tablet 20 mg PO DAILY ferrous sulfate 325 mg (65 mg iron) tablet 325 mg PO BID gabapentin 800 mg tablet 800 mg PO TID metoprolol succinate 25 mg tablet extended release 24 hr 25 mg PO DAILY aspirin [Adult Low Dose Aspirin] 81 mg tablet,delayed release (DR/EC) 81 mg PO QDAY Qty: 90 3RF dexamethasone [Decadron] 6 mg tablet 6 mg PO DAILY Qty: 7 0RF ondansetron 4 mg tablet,disintegrating 4 mg PO Q6H PRN (Reason: nausea and vomiting) Qty: 7 0RF Primary Care Provider: Nando Leon NP Referrals: Nando Leon NP, [employer] [Primary Care Provider] - 1 Week if not improving Disposition Disposition: Home, Self Care
== END 2023-01-22 20:03 | disposition home or self-care (01) ==
LOC: ED 19:59
PROVIDERS: Emergency Provider Emergency Medicine; PCP Nurse Practitioner Family; Visit Provider Emergency Medicine
DX: J06.9 Acute upper respiratory infection, unspecified (principal); E11.40 Type 2 diabetes mellitus with diabetic neuropathy, unspecified; E78.5 Hyperlipidemia, unspecified; E66.9 Obesity, unspecified; I25.10 Atherosclerotic heart disease of native coronary artery without angina pectoris; I10 Essential (primary) hypertension; M79.10 Myalgia, unspecified site; E78.00 Pure hypercholesterolemia, unspecified; Z95.0 Presence of cardiac pacemaker; D64.9 Anemia, unspecified; Z95.1 Presence of aortocoronary bypass graft; R94.6 Abnormal results of thyroid function studies; Z86.16 Personal history of COVID-19; I25.2 Old myocardial infarction
CPT/HCPCS: 99284; A4216

== ENCOUNTER → 2023-01-22 | Outpatient (CLI) | payer BC, SELFPAY ==
--- NOTE | 2023-01-22 16:05 | RAD_ITS ---
EXAM: XR CHEST, 2 VIEWS CLINICAL INDICATION: SOB TECHNIQUE: Frontal and lateral views of the chest. This report was created using [employer] report generation technology. COMPARISON: August 02, 2021. FINDINGS: LUNGS AND PLEURAL SPACES: Unremarkable. No consolidation or edema. No pneumothorax. No effusion. HEART: Unremarkable. Cardiac silhouette not enlarged. MEDIASTINUM: Central airways and mediastinal contour are unremarkable. BONES/JOINTS: Moderate degenerative changes of the glenohumeral joints, greater on the right. Median sternotomy wires are again noted. SOFT TISSUES: Unremarkable. TUBES, LINES AND DEVICES: Left subclavian transvenous pacemaker leads appear stable. RAD/Chest PA and Lateral IMPRESSION: No acute intrathoracic abnormality. Pacemaker leads. Degenerative shoulder changes. Electronically Signed: Roxane Kim MD at 17:48 EDT ,
[2023-01-22 16:19] LABS: Hematocrit 38.2 % (40-54); Hemoglobin 12.2 g/dL (13.0-16.5); Mean Corp Hgb Conc 31.9 g/dL (32-36); Mean Corpuscular Hgb 28.8 pg (27.0-32.0); Mean Corpuscular Volume 90.1 fL (80-94); Mean Platelet Vol. 10.2 fl (6.2-12.0); Platelet Count 354 K/mm3 (150-450); RBC Distribution Width CV 14.2 % (11.6-14.6); RBC Distribution Width SD 46.9 fl (35.1-43.9); Red Blood Count 4.24 M/mm3 (4.6-6.2); White Blood Count 8.3 K/mm3 (4.4-11.0)
[2023-01-22 17:03] LABS: ALB/GLOB Ratio 0.9 RATIO (0.9-2.4); AST(SGOT) 18 U/L (15-37); Alanine Aminotransfer ALT/SGPT 16 U/L (16-61); Albumin, Serum 3.8 g/dL (3.2-5.0); Alkaline Phosphatase 108 U/L (45-117); Anion Gap 5 (5-15); BUN 17 mg/dL (7-18); BUN/Creat Ratio 12.7 RATIO (10-20); CRP 3.85 mg/L (0.0-3.0); Calcium,Total 10.1 mg/dL (8.5-10.1); Chloride 104 mmol/L (98-107); Creatinine, Serum 1.34 mg/dL (0.70-1.30); EST Glomerular Filtration Rate 58 mL/min (>60); Est Glom Filt Rate - Afr Amer 71 mL/min (>60); Globulin 4.4 g/dL (2.2-4.2); Glucose 109 mg/dL (74-106); Potassium 4.1 mmol/L (3.5-5.1); Protein, Total 8.2 g/dL (6.4-8.2); Sodium Level 136 mmol/L (136-145); Thyroid Stim Hormone (TSH) 4.32 uIU/mL (0.358-3.74); Troponin-I HS 14 pg/mL (3.0-78.0)
[2023-01-22 17:13] LABS: D-Dimer Quantitative (DVT/PE) 0.57 FEU/ug/m (0.27-0.49)
[2023-01-24 14:23] LABS: H. Pylori Antibody (IgG) 0.27 (0.00-0.79)
== END | disposition home or self-care (01) ==
LOC: LAB 15:45
PROVIDERS: PCP Nurse Practitioner Family; Visit Provider Nurse Practitioner Family
DX: R06.02 Shortness of breath (principal); R07.9 Chest pain, unspecified; R10.13 Epigastric pain; R00.2 Palpitations
CPT/HCPCS: 36415; 71046; 80053; 84443; 84484; 85027; 85379; 86140; 86677

== ENCOUNTER → 2023-02-18 | Outpatient (CLI) | payer BC, SELFPAY ==
--- NOTE | 2023-02-18 12:50 | CT_ITS ---
STUDY: CTA CHEST REASON FOR EXAM: Male, 57 years old. CHEST PAIN, SOB. History of recent respiratory infection. RADIATION DOSAGE (If Supplied By Facility): CTDIvol = ( 13.81 ) mGy, DLP = ( 447.17 ) mGycm TECHNIQUE: The examination was performed with the intravenous administration of IV 100mL Isovue-370. Post-processing of the angiographic images was performed, with multiplanar reformation and 3D reconstruction. Individualized dose optimization techniques were used for this CT. COMPARISON: Comparison is made with prior chest radiograph dated January 22, 2023. FINDINGS: Normal enhancement of the main pulmonary artery and right and left pulmonary arteries. Normal enhancement of the bilateral peripheral pulmonary arteries. There is no demonstrated pulmonary embolism. There is atherosclerotic calcification of the aortic arch with tortuosity. There is no demonstrated aortic dissection. Sternal cerclage wires and vascular clips are present from a prior sternotomy and coronary artery bypass graft procedure (CABG). Minimal coronary artery calcification. A left-sided dual-chamber pacemaker is seen. Normal mediastinum. Normal hilar regions. Normal visualized trachea and bronchi. The lungs are well expanded. Normal pulmonary parenchyma. Normal pleura. Normal chest wall structures. There are degenerative changes of thoracic spine. Increased kyphosis. 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 There is a 1.1 cm hypodensity in the left adrenal gland suggestive of a small adrenal adenoma. Small hiatal hernia. CT/CTA Chest W/WO Contrast IMPRESSION: No acute abnormality is seen. Electronically Signed: Sohail Sebastian MD at 14:37 EDT ,
== END | disposition home or self-care (01) ==
LOC: CT 12:49
PROVIDERS: PCP Nurse Practitioner Family; Referring Provider Nurse Practitioner Family; Visit Provider Nurse Practitioner Family
DX: R07.9 Chest pain, unspecified (principal); I25.810 Atherosclerosis of coronary artery bypass graft(s) without angina pectoris; R79.89 Other specified abnormal findings of blood chemistry; R06.02 Shortness of breath; I44.0 Atrioventricular block, first degree
CPT/HCPCS: 71275; Q9967

== ENCOUNTER → 2023-03-27 | Outpatient (CLI) | payer BC, SELFPAY ==
--- NOTE | 2023-03-27 15:06 | ECHOD_ITS ---
Reason For Study: DYSPNEA Procedure This was a 2D Doppler, Color Flow transthoracic echocardiogram. Exam performed in department. Left Ventricle Normal LV size. Left ventricular systolic function is normal. The estimated ejection fraction is 60 %. No regional wall motion abnormalities noted. Right Ventricle Normal RV size. ICD or pacer leads identified within the right ventricle. Normal systolic function. Atria Normal left atrium. Normal right atrium. Mitral Valve Normal mitral valve. Tricuspid Valve Normal tricuspid valve. Mild tricuspid valve insufficiency. Pulmonary artery systolic pressure is 22 mmHg. Aortic Valve Trisinus/trileaflet aortic valve. Trivial aortic valve insufficiency. Great Vessels Normal aortic root. The pulmonary artery is normal size. Normal inferior vena cava. Pericardium/Pleural No pericardial effusion. MMode/2D Measurements & Calculations LVIDd: 4.5 cm IVSd: 1.2 cm LVOT diam: 2.1 cm LVIDs: 2.9 cm LVPWd: 0.86 cm LVOT area: 3.3 cm2 FS: 35.9 % Ao root diam: 2.4 cm LAV(MOD-bp): 60.0 ml LVAd ap4: 26.2 cm2 LAV(MOD-bp) Indexed: 28.7 ml/m2 LVLd ap4: 7.8 cm LAV(MOD-sp2): 45.8 ml EDV(MOD-sp4): 71.0 ml LAV(MOD-sp4): 62.0 ml EDV(sp4-el): 75.3 ml LVAs ap4: 14.9 cm2 LVLs ap4: 6.9 cm ESV(MOD-sp4): 27.0 ml ESV(sp4-el): 27.1 ml EF(MOD-sp4): 62.1 % EF(sp4-el): 64.0 % SV(MOD-sp4): 44.1 ml SV(sp4-el): 48.2 ml LA A4 area: 21.4 cm2 LA dimension(2D): 4.8 cm RA A4 area: 14.0 cm2 Time Measurements MV dec time: 0.21 sec Doppler Measurements & Calculations MV E max ronni: 93.8 cm/sec Lat Peak E' Ronni: 12.0 cm/sec Med Peak E' Ronni: 4.5 cm/sec MV A max ronni: 73.6 cm/sec E/E' lat: 7.8 E/E' med: 20.8 MV E/A: 1.3 MV V2 max: 100.0 cm/sec Ao V2 max: 233.0 cm/sec MV max P.0 mmHg MV dec slope: 447.4 cm/sec2 Ao max P.7 mmHg MV V2 mean: 62.4 cm/sec Ao V2 mean: 146.6 cm/sec MV mean P.7 mmHg Ao mean P.5 mmHg MV V2 VTI: 36.8 cm Ao V2 VTI: 52.8 cm AV (velocity ratio): 0.64 MVA(VTI): 3.0 cm2 STEVE(I,D): 2.1 cm2 STEVE(V,D): 2.0 cm2 AI max ronni: 423.4 cm/sec LV V1 max: 141.9 cm/sec MR max ronni: 428.5 cm/sec AI max P.8 mmHg LV V1 max P.1 mmHg MR max P.4 mmHg AI dec slope: 107.8 cm/sec2 LV V1 mean P.1 mmHg AI P1/2t: 1150 msec LV V1 mean: 90.7 cm/sec LV V1 VTI: 33.6 cm SV(LVOT): 111.9 ml PA V2 max: 109.7 cm/sec TR max ronni: 234.7 cm/sec PA V2 mean: 73.7 cm/sec TR max P.0 mmHg ECHO/Echo Complete Interpretation Summary Normal LV size. Left ventricular systolic function is normal. The estimated ejection fraction is 60 %. Mild tricuspid valve insufficiency. Trivial aortic valve insufficiency. ICD or pacer leads identified within the right ventricle. Ordering Physician: Laura Lieberman Referring Physician: Laura Lieberman Performed By: Beatriz Godfrey RCS
[2023-03-27 16:06] LABS: Hematocrit 36.9 % (40-54); Hemoglobin 11.5 g/dL (13.0-16.5); Mean Corp Hgb Conc 31.2 g/dL (32-36); Mean Corpuscular Hgb 28.3 pg (27.0-32.0); Mean Corpuscular Volume 90.9 fL (80-94); Mean Platelet Vol. 10.7 fl (6.2-12.0); Platelet Count 346 K/mm3 (150-450); RBC Distribution Width CV 14.1 % (11.6-14.6); RBC Distribution Width SD 46.5 fl (35.1-43.9); Red Blood Count 4.06 M/mm3 (4.6-6.2); White Blood Count 8.1 K/mm3 (4.4-11.0)
[2023-03-27 16:22] LABS: Microalbumin,Random Urine 5.5 mg/L (NO RANGE EST.)
[2023-03-27 16:45] LABS: ALB/GLOB Ratio 0.8 RATIO (0.9-2.4); AST(SGOT) 13 U/L (15-37); Alanine Aminotransfer ALT/SGPT 12 U/L (16-61); Albumin, Serum 3.3 g/dL (3.2-5.0); Alkaline Phosphatase 99 U/L (45-117); Anion Gap 8 (5-15); BUN 19 mg/dL (7-18); BUN/Creat Ratio 14.6 RATIO (10-20); Calcium,Total 9.5 mg/dL (8.5-10.1); Chloride 104 mmol/L (98-107); Cholesterol 197 mg/dL (200); EST Glomerular Filtration Rate 60 mL/min (>60); Est Glom Filt Rate - Afr Amer 73 mL/min (>60); Globulin 4.4 g/dL (2.2-4.2); Glucose 109 mg/dL (74-106); High Density Lipoprotein 43 mg/dL; Iron 70 ug/dL (65-175); Iron Binding Capacity,Total 331 ug/dL (250-450); PERCENT IRON SATURATION 21.1 % (15.0-55.0); Potassium 4.1 mmol/L (3.5-5.1); Protein, Total 7.7 g/dL (6.4-8.2); Sodium Level 137 mmol/L (136-145); Thyroid Stim Hormone (TSH) 4.05 uIU/mL (0.358-3.74); Triglycerides 136 mg/dL; Very Low Density Lipoprotein 27 mg/dL (5-40)
[2023-03-27 17:51] LABS: Hemoglobin A1c 6.1 % (3.8-5.6)
== END | disposition home or self-care (01) ==
PROVIDERS: PCP Nurse Practitioner Family; Referring Provider Nurse Practitioner Gerontology; Visit Provider Nurse Practitioner Gerontology
DX: R73.01 Impaired fasting glucose (principal); D50.9 Iron deficiency anemia, unspecified; I10 Essential (primary) hypertension; E78.00 Pure hypercholesterolemia, unspecified; I25.810 Atherosclerosis of coronary artery bypass graft(s) without angina pectoris; R63.8 Other symptoms and signs concerning food and fluid intake
CPT/HCPCS: 36415; 80053; 80061; 82043; 83036; 83540; 83550; 84443; 85027; 93306

== ENCOUNTER → 2024-02-28 | Outpatient (CLI) | payer SELFPAY ==
[2024-02-28 16:50] LABS: Hematocrit 33.2 % (40-54); Hemoglobin 10.2 g/dL (13.0-16.5); Mean Corp Hgb Conc 30.7 g/dL (32-36); Mean Corpuscular Hgb 27.1 pg (27.0-32.0); Mean Corpuscular Volume 88.3 fL (80-94); Platelet Count 335 K/mm3 (150-450); RBC Distribution Width CV 15.2 % (11.6-14.6); RBC Distribution Width SD 49.3 fl (35.1-43.9); Red Blood Count 3.76 M/mm3 (4.6-6.2)
[2024-02-28 17:07] LABS: PTHIN 35.4 pg/mL (18.4-80.1)
[2024-02-28 17:10] LABS: Vitamin D,25 Hydroxy 17.6 ng/mL
[2024-02-28 17:14] LABS: ALB/GLOB Ratio 0.9 RATIO (0.9-2.4); AST(SGOT) 16 U/L (15-37); Alanine Aminotransfer ALT/SGPT 13 U/L (16-61); Albumin, Serum 3.7 g/dL (3.2-5.0); Alkaline Phosphatase 84 U/L (45-117); Anion Gap 7 (5-15); BUN 31 mg/dL (7-18); BUN/Creat Ratio 17.1 RATIO (10-20); Calcium,Total 9.4 mg/dL (8.5-10.1); Chloride 108 mmol/L (98-107); Cholesterol 243 mg/dL (200); Creatinine, Serum 1.81 mg/dL (0.70-1.30); EST Glomerular Filtration Rate 41 mL/min (>60); Est Glom Filt Rate - Afr Amer 50 mL/min (>60); Globulin 4.1 g/dL (2.2-4.2); Glucose 124 mg/dL (74-106); High Density Lipoprotein 33 mg/dL; PSA,Total - Annual Screen 0.56 ng/mL (0.00-4.00); Protein, Total 7.8 g/dL (6.4-8.2); Sodium Level 140 mmol/L (136-145); Thyroid Stim Hormone (TSH) 1.88 uIU/mL (0.358-3.74); Triglycerides 108 mg/dL; Very Low Density Lipoprotein 22 mg/dL (5-40)
[2024-02-28 17:15] LABS: Microalbumin,Random Urine 18.9 mg/L (NO RANGE EST.); Microalbumin:Creatinine Ratio 7.7 mg/g CRE (<30 mg/g CRE)
== END | disposition home or self-care (01) ==
PROVIDERS: PCP Nurse Practitioner Family; Referring Provider Nurse Practitioner Family; Visit Provider Nurse Practitioner Family
DX: I12.9 Hypertensive chronic kidney disease with stage 1 through stage 4 chronic kidney disease, or unspecified chronic kidney disease (principal); N18.30 Chronic kidney disease, stage 3 unspecified; E78.00 Pure hypercholesterolemia, unspecified; E03.9 Hypothyroidism, unspecified; D50.9 Iron deficiency anemia, unspecified; R73.01 Impaired fasting glucose; Z12.5 Encounter for screening for malignant neoplasm of prostate
CPT/HCPCS: 36415; 80053; 80061; 82043; 82306; 82570; 83036; 83970; 84153; 84244; 84439; 84443; 85027; G0103

== ENCOUNTER 2024-10-06 23:43 | Emergency (ER) | payer OTHER, SELFPAY ==
[2024-10-06 23:43] VITALS: BP 142/63; PULSE 87; RESP 16; TEMP 37.2; O2SAT 100; BMI 36.5
--- NOTE | 2024-10-07 00:20 | EDS_ITS ---
HPI History of Present Illness Chief Complaint: Upper Extremity Injury Informant: patient Narrative Narrative: [id number] male presents here work-related injury. 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 Pinson pain in his shoulder while lifting. No significant issues in the past with the shoulder. Three-vessel CABG in the past pacemaker for sick sinus syndrome. [facility] Medical History COVID-19 History of non-ST elevation myocardial infarction (NSTEMI) (03/2018) Type 2 diabetes mellitus Postoperative atrial fibrillation Tachy-jessie syndrome Iron deficiency anemia Neuropathy JOSE (generalized anxiety disorder) Obesity Atherosclerotic heart disease of [place] coronary artery without angina pectoris Essential hypertension Hyperlipidemia Home Medications ?Medication ?Instructions ?Recorded ?Last Taken ?Type atorvastatin 80 mg tablet 80 mg PO QHS 06/23/21 Unknown History gabapentin 800 mg tablet 800 mg PO TID 06/23/21 Unknown History aspirin 81 mg tablet,delayed 81 mg PO QDAY #90 tabs 07/12/21 Unknown Rx release (Adult Low Dose Aspirin) metoprolol succinate 25 mg 25 mg PO DAILY #90 tabs 04/06/24 Unknown Rx tablet,extended release 24 hr escitalopram oxalate 20 mg tablet 20 mg PO DAILY #30 tabs 09/25/24 Unknown Rx (Lexapro) Allergy/AdvReac Type Severity Reaction Status Date / Time codeine AdvReac unknown Verified 10/06/24 23:46 Family History Mother Heart disease Diabetes Father Heart disease Surgical History History of left heart catheterization (04/04/18) H/O coronary artery bypass surgery (04/08/18) History of permanent cardiac pacemaker placement (04/14/18) Social History household members: none Smoking Status: Never smoker alcohol intake: never ROS ROS ED Constitutional Constitutional ED: Denies chills, fever(s) or sweats Respiratory/Chest Respiratory/Chest: Denies cough Gastrointestinal Gastrointestinal: Denies abdominal pain, diarrhea, nausea or vomiting Musculoskeletal Musculoskeletal: Reports extremity pain; Denies back pain or neck pain Integumentary Denies rash or wounds Neurologic Neurologic: Denies weakness EXAM Physical Exam Const Vital Signs: 10/06/24 23:43 Temperature 99 F Temperature Source Oral Pulse Rate 87 Respiratory Rate 16 Blood Pressure 142/63 H Blood Pressure Mean 89 Pulse Ox 100 Oxygen Delivery Method Room Air Positive well nourished and well developed General Appearance ED: well developed and NAD HEENT Reports moist mucous membranes normocephalic and atraumatic Eyes General Eye ED: Yes normal appearance of both eyes Neck full ROM Chest Wall Chest: Negative for tenderness Resp normal respiratory effort and normal air movement Effort and Inspection: symmetric chest movement; Negative for respiratory distress Cardio regular rate, regular rhythm and no murmurs Peripheral Pulses: pulses 2+ throughout GI normal to inspection, nondistended, normoactive bowel sounds and non-tender Palpation: Negative for guarding or rebound tenderness present Extremity Extremity Narrative: Right upper extremity: No clavicle tenderness. No deformities of shoulder. Positive empty can and positive speeds test. Soft compartments. Neuro vas in tact distally. General Extremety ED: Yes tenderness; Negative for edema General Extremity: Negative for edema Neuro oriented x3 and no sensory deficits noted Sensorium / Orientation: awake and alert Skin no rashes or lesions noted and no wounds MDM MDM MDM Narrative Medical decision making narrative: Interventions / MDM: Differential diagnosis: Rotator cuff injury, biceps tendinitis Diagnosis considered but do not suspect: No clinical dislocation or fracture. My EKG interpretation: N/A Imaging independently reviewed and interpreted by myself: N/A External documents reviewed: N/A Test considered but not ordered:N/A ED course: Clinical exam with his reported injury rotator cuff injury along with biceps tendinitis of the right shoulder. With his cardiac history discussed using Tylenol 1 g every 6 hours. First dose given in the ED. Appropriate work restrictions given. Outpatient follow-up with occupational health. I do not feel images are necessary at this time. All his questions were answered. Re-evaluation: stable Disposition discussed with patient/family/significant other: Patient Case discussed with consulting clinician: N/A This note was generated with [employer] ([employer])ation software. It may contain incorrect words, spelling, and punctuation that were not noted in checking the note before signing. Discharge Plan Triage Chief Complaint: Upper Extremity Injury ED Provider: Tony Lawson Dx/Rx/DC Orders Clinical Impression: Injury of right rotator cuff, Biceps tendinitis, Work related injury Instructions: Repetitive Motion Injury Shoulder, Biceps Tendonitis Prescriptions: No Action atorvastatin 80 mg tablet 80 mg PO QHS gabapentin 800 mg tablet 800 mg PO TID aspirin [Adult Low Dose Aspirin] 81 mg tablet,delayed release (DR/EC) 81 mg PO QDAY Qty: 90 3RF metoprolol succinate 25 mg tablet extended release 24 hr 25 mg PO DAILY Qty: 90 3RF escitalopram oxalate [Lexapro] 20 mg tablet 20 mg PO DAILY Qty: 30 11RF Primary Care Provider: Care Physician,No Primary Referrals: Nando Leon IT SPECIALIST, [employer] [Non-Staff] - Activity Restrictions/Additional Instructions: Use Tylenol 1 g every 6 hours as needed. Work restrictions as given. Follow-up with [facility] or occupational health through work. Print Language: [place]ican Disposition Disposition: Home, Self Care Discharge Date/Time: 10/07/24 00:43
[2024-10-07] MEDS: Acetaminophen 500 MG Tablet 1000 MG PO (00:36)
[2024-10-07 00:40] VITALS: BP 142/63; PULSE 87; RESP 16; TEMP 37.2; O2SAT 100
== END 2024-10-07 00:43 | disposition home or self-care (01) ==
PROVIDERS: Emergency Provider Emergency Medicine; Visit Provider Emergency Medicine
DX: S40.911A Unspecified superficial injury of right shoulder, initial encounter (principal); I49.5 Sick sinus syndrome; E11.40 Type 2 diabetes mellitus with diabetic neuropathy, unspecified; M75.20 Bicipital tendinitis, unspecified shoulder; Y99.0 Civilian activity done for income or pay; I25.10 Atherosclerotic heart disease of native coronary artery without angina pectoris; I10 Essential (primary) hypertension; Z95.0 Presence of cardiac pacemaker; E78.5 Hyperlipidemia, unspecified; I25.2 Old myocardial infarction; Z86.16 Personal history of COVID-19; Z79.82 Long term (current) use of aspirin; Z95.1 Presence of aortocoronary bypass graft; X50.0XXA Overexertion from strenuous movement or load, initial encounter
CPT/HCPCS: 99282

== ENCOUNTER 2024-12-21 11:46 | Emergency (ER) | payer MEDICAID, SELFPAY ==
[2024-12-21 11:47] VITALS: BP 151/79; PULSE 61; RESP 16; TEMP 36.4; O2SAT 99; BMI 35.6
--- NOTE | 2024-12-21 11:50 | EKG12_ITS ---
Test Reason : CP Blood Pressure : */* mmHG Vent. Rate : 60 BPM Atrial Rate : 60 BPM P-R Int : 234 ms QRS Dur : 98 ms QT Int : 430 ms P-R-T Axes : 39 10 79 degrees QTcB Int : 430 ms Atrial-paced rhythm with prolonged AV conduction Nonspecific ST and T wave abnormality Abnormal ECG Confirmed by Nitish De Luna ([id number]), purchase request editor JACQUELINE BRAGG ([id number]) on 12/22/2024 11:03:49 AM Referred By: Confirmed By: Nitish De Luna
--- NOTE | 2024-12-21 11:50 | RAD_ITS ---
EXAM: XR Chest, 1 View CLINICAL INDICATION: TECHNIQUE: Frontal view of the chest. COMPARISON: No relevant prior studies available. FINDINGS: LUNGS AND PLEURAL SPACES: Unremarkable. No consolidation. No pneumothorax. HEART: Unremarkable. No cardiomegaly. MEDIASTINUM: Unremarkable. Normal mediastinal contour. BONES/JOINTS: Unremarkable. No acute fracture. TUBES, LINES AND DEVICES: Left-sided cardiac pacemaker. RAD/Chest 1 View (Portable) IMPRESSION: No acute cardiopulmonary process. Reading Location: [facility]
--- NOTE | 2024-12-21 12:33 | EDS_ITS ---
<Statement entered by Dante Aldrich DO - 12/23/24 07:37> Patient was seen and examined with physician physical therapy assistant Claritza All components of the history and physical confirmed and agreed. 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 States that around 8:30 AM he developed feeling that his heart was racing his chest shortness of breath and chest pressure. States that the last about 2 hours before got better on its own. He states that he was not sure exactly what is going on therefore he came here for evaluation management. Review of systems:. Above Physical exam: I will add on the patient has good radial pulses +2/4 in the bilateral upper extremities, +5/5 strength noted in bilateral upper and lower extremities MDM Patient is a 59-year-old male who presented to the emerged part with a chief complaint of 1 week of intermittent nausea palpitations periodic chest pressure shortness of breath palpitations. On the differential diagnose includes but not limited to ACS, pneumonia, pneumothorax, perspire effect secondary viral etiology, cardiac arrhythmia. Once workup is obtained reviewed he will be reevaluated. Patient CBC was reviewed and showed no evidence leukocytosis white blood count of 10.6, hemoglobin stable 12, plate count is 8375. Patient sodium 137, potassium 3.6, creatinine was 1.94. Patient's troponin was 138 with a delta troponin of 32. Patient's chest x-ray was reviewed by myself and by radiology which showed no acute cardiopulmonary processes. Patient's EKG reviewed by myself showed sinus rhythm with a atrial paced rhythm at 60 bpm. Patient's pacemaker was interrogated in the ED and he had episode on 12/19/2024 of 2 seconds of SVT otherwise this was unremarkable. Physician physical therapy assistant Claritza discussed case with on-call focusing machine operator Dr. De Luna who states that he can follow-up in the outpatient setting. He was advised to return to worsening symptoms and concerns. He is advised to follow-up up with his primary care physician and cardiology team as well. He is agreeable this plan all question concerns answered he is discharged home in stable condition. Final impression: Chest pain Palpitations Disposition: Patient will be discharged home in stable condition Supervising attending attestation: Dante FLORES History of Present Illness Chief Complaint: Chest Pain Narrative Narrative: 59-year-old male with PMH of HTN, HLD, CABG, pacemaker secondary to tachy/bradycardia syndrome states he has had 1 week of fatigue, nausea especially in the morning, and palpitations where he can feel his heartbeat strongly. This morning around 8:30 AM he developed palpitations, shortness of breath, and chest pressure. It lasted about 2 hours and resolved on its own. He denies pain radiating to his jaw or arm. He states the pain was not severe and did not feel like his last heart attack. [facility] Medical History COVID-19 History of non-ST elevation myocardial infarction (NSTEMI) (03/2018) Type 2 diabetes mellitus Postoperative atrial fibrillation Tachy-jessie syndrome Iron deficiency anemia Neuropathy JOSE (generalized anxiety disorder) Obesity Atherosclerotic heart disease of [place] coronary artery without angina pectoris Essential hypertension Hyperlipidemia Home Medications ?Medication ?Instructions ?Recorded ?Last Taken ?Type atorvastatin 80 mg tablet 80 mg PO QHS 06/23/21 Unknow n History gabapentin 800 mg tablet 800 mg PO TID 06/23/21 Unkno wn History aspirin 81 mg tablet,delayed 81 mg PO QDAY #90 tabs Unknown Rx release (Adult Low Dose Aspirin) escitalopram oxalate 20 mg tablet 20 mg PO DAILY #30 t abs 09/25/24 Unknown Rx (Lexapro) metoprolol succinate 25 mg 25 mg PO DAILY #90 tabs Unknown Rx tablet,extended release 24 hr Allergy/AdvReac Type Severity Reaction Status Date / Time atorvastatin (From Lipitor) Allergy Mild Pain in Verified 12/21/24 11:49 joints codeine AdvReac unknown Verified 10/06/24 23:46 Family History Mother Heart disease Diabetes Father Heart disease Surgical History History of left heart catheterization (04/04/18) H/O coronary artery bypass surgery (04/08/18) History of permanent cardiac pacemaker placement (04/14/18) Social History household members: none Smoking Status: Never smoker alcohol intake: never ROS ROS ED ROS Narrative Constitutional: Negative for fever, chills, malaise. CVS: Positive for palpitations, chest pain. Negative syncope. Respiratory: Positive for shortness of breath. Negative for cough, orthopnea. GI: Positive for nausea. Negative for abdominal pain, vomiting. EXAM Physical Exam Narrative Exam Narrative: CONST: Patient sitting in no acute distress. EYES: Normal inspection. NECK: Normal inspection. RESP: No respiratory distress, CTAB. CVS: Regular rate and rhythm, no murmur, no gallop. ABD: Soft and nontender, no guarding or rebound, nondistended. SKIN: Color normal, no rash, warm, dry, intact. EXTREMITIES: Normal appearance, no pedal edema. NEURO: Alert and answering questions appropriately. PSYCH: Normal affect. Const Vital Signs: 12/21/24 11:47 12/21/24 11:50 12/21/24 11:50 Temperature 97.6 F L Temperature Source Oral Pulse Rate 61 Respiratory Rate 16 Respiratory Effort Normal Blood Pressure 151/79 H Blood Pressure Mean 103 Pulse Ox 99 Oxygen Delivery Method Room Air Room Air 12/21/24 12:46 12/21/24 14:00 12/21/24 15:00 Temperature Temperature Source Pulse Rate 60 60 60 Respiratory Rate 18 18 Respiratory Effort Blood Pressure 151/62 H 135/62 H Blood Pressure Mean 91 86 Pulse Ox 98 97 Oxygen Delivery Method Room Air Room Air MDM MDM MDM Narrative Medical decision making narrative: 59-year-old male reports 1 week of intermittent nausea and palpitations and this morning had a transient episode of chest pressure, dyspnea, and palpitations. Symptoms resolved prior to arrival. He is awake alert in no distress. Vital signs are stable. BP 151/79, HR 61 in normal sinus rhythm. CBC shows normal WBC of 10.6. Hemoglobin 12.0 is stable. Electrolytes remarkable. BUN 21, creatinine 1.94 is slightly elevated from prior at 1.81. Serial troponins are 38 and 32. CXR shows no acute process. His pacemaker was interrogated and he had 2 seconds of SVT on 12/19/2024 and is otherwise unremarkable. Patient has remained symptom-free during his stay in the emergency department. I consulted cardiology and reviewed the case with Dr. De Luna who is agreeable with outpatient follow-up. Patient vies to come back for new or worsening symptoms. He was discharged in stable condition. Lab Data Attestation: I reviewed the patient's lab results. Labs: Laboratory Results - last 24 hr 12/21/24 12/21/24 12:32 14:10 WBC 10.6 RBC 4.22 L Hgb 12.0 L Hct 37.0 L MCV 87.7 MCH 28.4 MCHC 32.4 RDW Std Deviation 45.4 H RDW Coeff of Maxwell 14.2 Plt Count 375 MPV 11.0 Immature Gran % (Auto) 0.800 Neut % (Auto) 71.1 H Lymph % (Auto) 18.2 L [place] % (Auto) 6.0 Eos % (Auto) 3.1 Baso % (Auto) 0.8 Absolute Neuts (auto) 7.6 Absolute Lymphs (auto) 1.93 Nucleated RBC % 0 Sodium 137 Potassium 3.6 Chloride Direct 99 Carbon Dioxide 17.4 L Anion Gap 21 H BUN 21 H Creatinine 1.94 H Estim Creat Clear Calc 46.99 L Est GFR (MDRD) Non-Af 39 L BUN/Creatinine Ratio 10.7 Glucose 112 H Calcium 11.6 H Troponin T High Sens 38 H Troponin T Hi Sens 2 Hr 32 H Troponin T Hi Sens 2Hr Delta 6 Radiography Diagnostic Testing: Clinical Impression(s) from Imaging Studies Chest X-Ray 12/21/24 11:50 IMPRESSION: No acute cardiopulmonary process. Reading Location: [facility] ED attending interpretation 1 view chest x-ray shows normal heart size, no acute infiltrate. EKG Initial EKG: Attestation: I personally reviewed and interpreted this EKG as follows: Interpretation: Sinus Rhythm and No Acute Injury Pattern Comments: EKG shows atrial paced rhythm at [address] changes Discharge Plan Triage Chief Complaint: Chest Pain ED Midlevel Provider: Claritza Lawson ED Provider: Dante Aldrich Dx/Rx/DC Orders Clinical Impression: Chest pain, Palpitations, History of pacemaker Instructions: ED Chest Pain, Uncertain Cause, ED Palpitations Prescriptions: No Action atorvastatin 80 mg tablet 80 mg PO QHS gabapentin 800 mg tablet 800 mg PO TID aspirin [Adult Low Dose Aspirin] 81 mg tablet,delayed release (DR/EC) 81 mg PO QDAY Qty: 90 3RF escitalopram oxalate [Lexapro] 20 mg tablet 20 mg PO DAILY Qty: 30 11RF metoprolol succinate 25 mg tablet extended release 24 hr 25 mg PO DAILY Qty: 90 3RF Stand Alone Forms: Work / School Excuse Primary Care Provider: Care Physician,No Primary Referrals: David Morillo MD [Med Staff - Active Staff] - Care Physician,No Primary [Primary Care Provider] - Activity Restrictions/Additional Instructions: Call the focusing machine operator office for a follow-up appointment. If you develop new or worsening symptoms like chest pain or shortness of breath come back to the emergency room for reevaluation. Print Language: Albanian Disposition Disposition: Home, Self Care Discharge Date/Time: 12/21/24 15:50
[2024-12-21 12:46] VITALS: BP 151/62; PULSE 60; RESP 18; O2SAT 98
[2024-12-21 13:08] LABS: Troponin T High Sensitivity 38 ng/L (<=22)
[2024-12-21 13:21] LABS: Absolute Lymphocyte Count 1.93 X10^3/uL (0.83-4.51); Absolute Neutrophil Count 7.6 X10^3/uL (2.0-7.7); Basophil# 0.09 X10^3/uL; Basophil% 0.8 % (0-1); Eosinophil# 0.33 X10^3/uL; Eosinophils% 3.1 % (0-5); Lymphocyte # 1.93 X10^3/ul (0.83-4.51); Lymphocyte % 18.2 % (19-41); Mean Corp Hgb Conc 32.4 g/dL (32-36); Mean Corpuscular Hgb 28.4 pg (27.0-32.0); Mean Corpuscular Volume 87.7 fL (80-94); Monocyte# 0.64 X10^3/uL; NRBC Flagged by Analyzer 0 % (0-5); Neutrophil # 7.55 X10^3/uL (2.7-7.7); Neutrophil % 71.1 % (47-70); Platelet Count 375 K/mm3 (150-450); RBC Distribution Width CV 14.2 % (11.6-14.6); RBC Distribution Width SD 45.4 fl (35.1-43.9); Red Blood Count 4.22 M/mm3 (4.6-6.2); White Blood Count 10.6 K/mm3 (4.4-11.0)
[2024-12-21 14:00] VITALS: BP 135/62; PULSE 60
[2024-12-21 14:15] LABS: Anion Gap 21 (5-15); BUN 21 mg/dL (4-19); BUN/Creat Ratio 10.7 RATIO (10-20); Calcium 11.6 mg/dL (7.6-11.0); Carbon Dioxide 17.4 mmol/L (22.0-29.0); Chloride 99 mmol/L (96-108); Creatinine, Serum 1.94 mg/dL (0.70-1.20); EST Glomerular Filtration Rate 39 (>60); Estimated Creatinine Clearance 46.99 ml/min (50-250); Glucose 112 mg/dL (70-99); Potassium 3.6 mmol/L (3.3-5.1); Sodium Level 137 mmol/L (133-145)
[2024-12-21 14:40] LABS: TROPONIN VARIANCE 2 HR 6; Troponin T High Sens 2 HR 32 ng/L (<=22)
[2024-12-21 15:00] VITALS: PULSE 60; RESP 18; O2SAT 97
--- NOTE | 2024-12-21 16:29 | CM.ED ---
Social work Reason for referral: homelessness Referral source: Mónica NIETO This SW was asked by Mónica NIETO to provide patient with resources prior to patient discharging. Patient was reported to recently become homeless and in need of resources. This SW entered patient's room, introducing self and role at [facility]. Patient welcomed SW visit and patient confirmed recently becoming homeless and in need of a place to stay for at least a couple weeks. Patient stated looking into [employer] as a place to eat and shower, but patient stated having patient's car if necessary to sleep in. Patient accepted resources of [employer] card, [employer] brochure, local food pantries, and local homeless shelters. Patient denied need for most recent list of [place] housing options as patient reported already looking into this. Patient stated being grateful for this SW providing resources and patient stated intent to go to [email or web address] [employer] upon discharge from the [facility] ED to see what help [facility] could provide. Patient denied further needs at this time. Eliane Arevalo, [employer]CTION [employer]ATE ROLLER HAND, PASTRY COOK APPRENTICE
== END 2024-12-21 15:50 | disposition home or self-care (01) ==
PROVIDERS: Emergency Provider Emergency Medicine; Visit Provider Emergency Medicine
DX: R07.9 Chest pain, unspecified (principal); E11.40 Type 2 diabetes mellitus with diabetic neuropathy, unspecified; I47.10 Supraventricular tachycardia, unspecified; I25.10 Atherosclerotic heart disease of native coronary artery without angina pectoris; R00.2 Palpitations; I10 Essential (primary) hypertension; E78.5 Hyperlipidemia, unspecified; Z95.0 Presence of cardiac pacemaker; R06.02 Shortness of breath; Z95.1 Presence of aortocoronary bypass graft; Z86.16 Personal history of COVID-19; I25.2 Old myocardial infarction
CPT/HCPCS: 71045; 80048; 84484; 85025; 87631; 93005; 93288; 99284